=== PATIENT | female | born 1965 | race Caucasian/White ===

== ENCOUNTER 2019-03-26 01:03 | Emergency (ER) | payer MEDICARE ==
[2019-03-26] MEDS ORDERED: BENADRYL 50 MG/ML IV ONE (01:43)
[2019-03-26] MEDS ORDERED: Pepcid 20 MG VIAL IV ONE ×3 (01:43→02:03)
[2019-03-26] MEDS ORDERED: solu-MEDROL 125 MG IV ONE (01:43)
[2019-03-26] MEDS ORDERED: Zofran 4 MG/2 ML VIAL IV ONE (01:43)
[2019-03-26] MEDS ORDERED: Zofran 4 MG/2 ML VIAL ONE ×2 (01:54→02:00)
[2019-03-26] MEDS ORDERED: solu-MEDROL 125 MG ONE (01:55)
[2019-03-26] MEDS ORDERED: BENADRYL 50 MG/ML ONE (01:55)
[2019-03-26 04:58] VITALS: BP 108/70; PULSE 68
[2019-03-26 04:59] VITALS: O2SAT 94
--- NOTE | 2019-03-26 04:59 | ERPHSYRPT ---
- History of Present Illness Source: patient Exam Limitations: no limitations Patient Subjective Stated Complaint: Allergic reaction/bee sting Triage Nursing Assessment: Patient ambulated back to ED and transferred to bed. Patient A+O X3. Patient states she was stung by a honey bee on the left side of lip around 1999. Patient states she took Benadryl 25mg right after. Patient states the swelling has been getting worse. Patient states she took two more benadryl equal 50mg around 010. Patient's left side of face, left side of lip, eye swollen. Patient states her face is numb but doesn't hurt. Patient denies difficulty swallowing at this time. Physician History: Pt is a 53 y/o female that presented to the ED with allergic reaction to bee sting. Pt had a bee sting on the left side of her upper lip. She states, that she never had allergic reaction before, but now a couple of hours post sting, pt 's left side of the face got swollen. Pt denies any problem with breathing, or any edema in her throat. She does feel that her upper lip is swollen and the left side of her face. No F/C/S. No itchiness, no swelling of her nose. Timing/Duration: yesterday Severity: moderate Modifying Factors: Improves With: medication Associated Symptoms: other (swelling of the face on the L.) Allergies/Adverse Reactions: infliximab [From Remicade] Allergy (Verified 03/26/19 01:14) Hx Influenza Vaccination/Date Given: No Hx Pneumococcal Vaccination/Date Given: No Immunizations Up to Date: Yes - Review of Systems Constitutional: No Fever, No Chills Eyes: No Symptoms Ears, Nose, & Throat: No Symptoms Respiratory: No Cough, No Dyspnea Cardiac: No Chest Pain, No Edema, No Syncope Abdominal/Gastrointestinal: No Abdominal Pain, No Nausea, No Vomiting, No Diarrhea Musculoskeletal: No Back Pain, No Neck Pain Neurological: No Dizziness, No Focal Weakness, No Sensory Changes Immunological/Allergic: Other (swelling of the face and lip on the left) - Past Medical History Pertinent Past Medical History: Yes Neurological History: No Pertinent History ENT History: No Pertinent History Cardiac History: Hypertension Respiratory History: No Pertinent History Endocrine Medical History: No Pertinent History Musculoskeletal History: Rheumatoid Arthritis GI Medical History: No Pertinent History History: No Pertinent History Psycho-Social History: No Pertinent History Female Reproductive Disorders: No Pertinent History - Past Surgical History Past Surgical History: No Neuro Surgical History: No Pertinent History Cardiac: No Pertinent History Respiratory: No Pertinent History Gastrointestinal: No Pertinent History Genitourinary: No Pertinent History Musculoskeletal: No Pertinent History Female Surgical History: No Pertinent History - Social History Smoking Status: Never smoker Exposure to second hand smoke: No Drug Use: none Patient Lives Alone: No - Female History Hx Now: No - Nursing Vital Signs Nursing Vital Signs: Initial Vital Signs Temperature 97.7 F 03/26/19 01:16 Pulse Rate 87 03/26/19 01:16 Respiratory Rate 18 03/26/19 01:16 Blood Pressure 139/83 03/26/19 01:16 O2 Sat by Pulse Oximetry 94 L 03/26/19 01:16 Pain Scale Pain Intensity 0 - Physical Exam General Appearance: mild distress Eye Exam: PERRL/EOMI, eyes nml inspection Ears, Nose, Throat Exam: normal ENT inspection, TMs normal, pharynx normal, moist mucous membranes, other (swelling of the face, cheek and lip on the L.) Neck Exam: normal inspection, non-tender, supple, full range of motion Respiratory Exam: normal breath sounds, lungs clear, No respiratory distress Cardiovascular Exam: regular rate/rhythm, normal heart sounds, normal peripheral pulses Gastrointestinal/Abdomen Exam: soft, normal bowel sounds, No tenderness, No mass Back Exam: normal inspection, normal range of motion, No CVA tenderness, No vertebral tenderness Extremity Exam: normal inspection, normal range of motion, pelvis stable Neurologic Exam: alert, oriented x 3, cooperative, normal mood/affect, nml cerebellar function, nml station & gait, sensation nml, No motor deficits SpO2 Interpretation: normal SpO2: 94 O2 Delivery: Room Air Ordered Tests: Medication Summary Discontinued Medications Generic Name Dose Route Start Last Admin Trade Name Freq PRN Reason Stop Dose Admin Diphenhydramine HCl 50 mg 03/26/19 01:43 03/26/19 02:01 Benadryl 50 Mg/Ml IV 03/26/19 01:44 50 mg STAT ONE Administration Diphenhydramine HCl Confirm 03/26/19 01:55 Benadryl 50 Mg/Ml Administered 03/26/19 01:56 Dose 50 mg .ROUTE .STK-MED ONE Famotidine 40 mg 03/26/19 01:43 03/26/19 02:02 Pepcid 20 Mg Vial IV 03/26/19 01:44 40 mg STAT ONE Administration Famotidine Confirm 03/26/19 01:55 Pepcid 20 Mg Vial Administered 03/26/19 01:56 Dose 20 mg IV .STK-MED ONE Famotidine Confirm 03/26/19 02:03 Pepcid 20 Mg Vial Administered 03/26/19 02:04 Dose 20 mg IV .STK-MED ONE Methylprednisolone Sodium Succinate 125 mg 03/26/19 01:43 03/26/19 01:57 Solu-Medrol 125 Mg IV 03/26/19 01:44 125 mg STAT ONE Administration Methylprednisolone Sodium Succinate Confirm 03/26/19 01:55 Solu-Medrol 125 Mg Administered 03/26/19 01:56 Dose 125 mg .ROUTE .STK-MED ONE Ondansetron HCl 8 mg 03/26/19 01:43 03/26/19 01:59 Zofran 4 Mg/2 Ml Vial IV 03/26/19 01:44 8 mg STAT ONE Administration Ondansetron HCl Confirm 03/26/19 01:54 Zofran 4 Mg/2 Ml Vial Administered 03/26/19 01:55 Dose 4 mg .ROUTE .STK-MED ONE Ondansetron HCl Confirm 03/26/19 02:00 Zofran 4 Mg/2 Ml Vial Administered 03/26/19 02:01 Dose 4 mg .ROUTE .STK-MED ONE - Progress Progress: improved Progress Note: 03/26/19 04:59 Pt was seen and examined. She got Solu Medrol IV 125mg, Pepcid 40mg IV, and Benadryl 50mg IV. She was observed in the ER. Swelling is improved, and pt has no erythema or SOB. Pt is asking for d/c. I will order Medrol dose pack, Pepcid and Benadryl. Pt was instructed to call 911, if there is any change in her breathing, or increase in swelling. Pt should f/u with her PCP. Discussed with : Giovany Will see patient in: office Counseled pt/family regarding: need for follow-up - Departure Departure Disposition: Home Clinical Impression: Allergic reaction to bee sting Condition: Stable Critical Care Time: No Referrals: KISHA CHRISTOPHER [Primary Care Provider] - Additional Instructions: Take meds as ordered. If there is any change call 911. F/U with PCP in the AM. Prescriptions: Diphenhydramine HCl [Benadryl] 50 mg PO QID #60 capsule Famotidine [Pepcid] 40 mg PO DAILY #10 tablet Methylprednisolone Packet [Medrol Dosepack] 4 mg PO UD #1 packet
== END 2019-03-26 05:15 | disposition home or self-care (01) ==
LOC: ED 01:03
DX: T63.441A Toxic effect of venom of bees, accidental (unintentional), initial encounter (principal)
CPT/HCPCS: 96374; 96375; 99284; J1200; J2405; J2930